=== PATIENT | female | born 1970 | race Caucasian/White ===

== ENCOUNTER 2016-05-11 10:25 | Emergency (ER) | payer MEDICAID ==
[~2016-05-11] VITALS: Ht 172.7 cm; Wt 74.8 kg
[2016-05-11 10:25] VITALS: BP 104/58; PULSE 71; RESP 18; TEMP 97.2; O2SAT 97
[~2016-05-11 10:25] MED LIST: ALBU17AE26 INH; CIPR-260 PO; DICY20TA55 PO; FLA250 PO; IBUP-786 PO; LACTIN PO; LEVO500T20 PO; METR500T PO; NORCO5 PO; OXYC-133 PO; PRO40 PO; SULF-261 PO; TEMA15CA51 PO
--- NOTE | 2016-05-11 10:25 | NUR ---
BROUGHT BACK TO BED #4 AND TRIAGED. REPORT GIVEN TO KAVYA
--- NOTE | 2016-05-11 10:30 | NUR ---
C/O slip and fall with left elbow pain 11/26, pain with AROM. S/C right front bridge knocked out by fall. States she wants to make sure that her arm is not broken. She plans to follow with the dentis ayan leaving ER and is making calls to arrange follow up at this time.
--- NOTE | 2016-05-11 11:00 | NUR ---
VICKY Beltran at bedside examining patient.
[2016-05-11] MEDS ORDERED: KETOROLAC TROMETHAMINE 60 MG/2 ML VIAL IM ONE (12:00)
--- NOTE | 2016-05-11 13:16 | NUR ---
Patient given written and verbal discharge instructions and verbalizes understanding. ER MD discussed with patient the results and treatment provided. Given copies of tests performed in ER. Patient in stable condition. ID arm band removed. Patient educated on pain management and to follow up with PMD. Pain Scale 4/10, pt states this is acceptable level of pain and she will manage her pain with OTC medications. Opportunity for questions provided and answered.
== END 2016-05-11 13:15 | disposition home or self-care (01) ==
LOC: SED 10:25
DX: S50.02XA Contusion of left elbow, initial encounter (principal); K21.9 Gastro-esophageal reflux disease without esophagitis; W01.0XXA Fall on same level from slipping, tripping and stumbling without subsequent striking against object, initial encounter; Y93.89 Activity, other specified; Y92.89 Other specified places as the place of occurrence of the external cause; Y99.8 Other external cause status
CPT/HCPCS: 29105; 73030; 73080; 96372; 99284; J1885

== ENCOUNTER 2016-12-13 07:15 | Emergency (ER) | payer MEDICAID ==
[~2016-12-13] VITALS: Ht 170.2 cm; Wt 74.8 kg
[2016-12-13 07:15] VITALS: BP_SYST 115
[~2016-12-13 07:15] MED LIST changes: -ALBU17AE26 INH; -CIPR-260 PO; -IBUP-786 PO; -METR500T PO; -NORCO5 PO; -OXYC-133 PO; -SULF-261 PO
--- NOTE | 2016-12-13 07:15 | NUR ---
Pt was brought to bed 8 with complaints of bug bites all over bilateral legs and arms, pt thinks they are mosquito bites and states cannot stand the itching. Pt states has tried cortizone cream and nothing works. No other injuries/complaints per pt or noted.
--- NOTE | 2016-12-13 07:15 | NUR ---
BROUGHT BACK TO BED #8 AND TRIAGED. REPORT GIVEN TO SALVADOR
--- NOTE | 2016-12-13 07:35 | NUR ---
ER at bedside examining patient.
[2016-12-13] MEDS ORDERED: DIPHENHYDRAMINE INJ 50 MG/ML VIAL IM ONE (07:45)
[2016-12-13 07:53] VITALS: BP_SYST 110
--- NOTE | 2016-12-13 07:53 | NUR ---
Patient given written and verbal discharge instructions and verbalizes understanding. ER MD discussed with patient the results and treatment provided. Patient in stable condition. ID arm band removed. Rx of atarax and neosporin given. Patient educated on pain management and to follow up with PMD. Pain Scale 2. Opportunity for questions provided and answered.
== END 2016-12-13 07:53 | disposition home or self-care (01) ==
LOC: SED 07:15
DX: S80.862A Insect bite (nonvenomous), left lower leg, initial encounter (principal); S80.861A Insect bite (nonvenomous), right lower leg, initial encounter; S40.862A Insect bite (nonvenomous) of left upper arm, initial encounter; S40.861A Insect bite (nonvenomous) of right upper arm, initial encounter; K21.9 Gastro-esophageal reflux disease without esophagitis; I10 Essential (primary) hypertension; Z79.899 Other long term (current) drug therapy; W57.XXXA Bitten or stung by nonvenomous insect and other nonvenomous arthropods, initial encounter; Y93.89 Activity, other specified; Y92.89 Other specified places as the place of occurrence of the external cause; Y99.8 Other external cause status
CPT/HCPCS: 96372; 99283; J1200

== ENCOUNTER 2017-08-03 02:46 | Emergency (ER) | payer MEDICAID ==
[~2017-08-03] VITALS: Ht 170.2 cm; Wt 77.1 kg
[2017-08-03 02:55] VITALS: BP_SYST 137
[2017-08-03] MEDS ORDERED: AMOXICILLIN 500 MG CAPSULE PO ONE (03:30)
[2017-08-03 03:45] VITALS: BP_SYST 132
== END 2017-08-03 03:45 | disposition home or self-care (01) ==
LOC: SED 02:46
DX: J02.9 Acute pharyngitis, unspecified (principal); I10 Essential (primary) hypertension; K21.9 Gastro-esophageal reflux disease without esophagitis; Z88.6 Allergy status to analgesic agent; Z88.5 Allergy status to narcotic agent
CPT/HCPCS: 36415; 86403; 87081; 99284

== ENCOUNTER 2017-08-07 05:31 | Emergency (ER) | payer MEDICAID ==
[~2017-08-07] VITALS: Ht 170.2 cm; Wt 78.0 kg
[2017-08-07 05:36] VITALS: BP_SYST 134
[2017-08-07 06:42] VITALS: BP_SYST 131
== END 2017-08-07 06:42 | disposition home or self-care (01) ==
LOC: SED 05:31
DX: S40.862A Insect bite (nonvenomous) of left upper arm, initial encounter (principal); S40.861A Insect bite (nonvenomous) of right upper arm, initial encounter; S30.861A Insect bite (nonvenomous) of abdominal wall, initial encounter; L08.9 Local infection of the skin and subcutaneous tissue, unspecified; K21.9 Gastro-esophageal reflux disease without esophagitis; Z88.5 Allergy status to narcotic agent; Z88.6 Allergy status to analgesic agent; W57.XXXA Bitten or stung by nonvenomous insect and other nonvenomous arthropods, initial encounter; Y93.89 Activity, other specified; Y92.89 Other specified places as the place of occurrence of the external cause; Y99.8 Other external cause status
CPT/HCPCS: 99283

== ENCOUNTER 2018-04-14 22:10 | Emergency (ER) | payer MEDICAID ==
[~2018-04-14] VITALS: Ht 167.6 cm; Wt 77.1 kg
[~2018-04-14 22:10] MED LIST changes: +TEMA15CA5 PO; -TEMA15CA51 PO
[2018-04-14 22:15] VITALS: BP_SYST 133
--- NOTE | 2018-04-14 22:55 | NUR ---
Pt spoke with frontniravk , states she wants to LWBS
== END 2018-04-14 22:55 | disposition left against medical advice (07) ==
LOC: SED 22:10
DX: R05 Cough (principal); R09.81 Nasal congestion; Z53.21 Procedure and treatment not carried out due to patient leaving prior to being seen by health care provider